=== PATIENT | male | born 1955 | race Caucasian/White ===

== ENCOUNTER → 2016-11-23 | Outpatient (CLI) | payer MEDICARE, BC ==
[~2016-11-23] MED LIST: ALTACE10 MG PO; ATENOLOL50 MG PO; CIPRO 500MG TA500 MG PO; CLOTRIM ANTIFUNGAL1% TP; DETROL LA4 PO; FORTAMET500 MG PO; GABAPENTIN400 M1 PO; LEVOTHYROXIN0.175 MG PO; NITROFURANTOIN PO; PEPCID 20MG TAB20 MG PO; STOOL SOFTENER100 MG PO; TEKTURNA PO; XENADERM; ZETIA10 MG PO; ZOFRAN 8MG8 MG PO
== END ==
LOC: COL.RAD 11:24
DX: N45.2 Orchitis (principal); N45.1 Epididymitis; R50.9 Fever, unspecified

== ENCOUNTER → 2018-12-02 | Outpatient (CLI) | payer MEDICARE, OTHER | LOC: COL.RAD 15:50 | DX: N20.0 Calculus of kidney (principal); N32.89 Other specified disorders of bladder; K80.20 Calculus of gallbladder without cholecystitis without obstruction; M41.86 Other forms of scoliosis, lumbar region; M46.86 Other specified inflammatory spondylopathies, lumbar region; Z98.1 Arthrodesis status; Z87.442 Personal history of urinary calculi ==